=== PATIENT | female | born 1960 | race Caucasian/White ===

== ENCOUNTER → 2020-07-22 | Outpatient (CLI) | payer BC ==
[~2020-07-22] MED LIST: RT-ALBUTEROL SULF 2.5 MG/3 ML PRE-MIX VIAL INH ONE
== END ==
LOC: RAD 08:00
PROVIDERS: ATTEND Nurse Practitioner Family
DX: J44.9 Chronic obstructive pulmonary disease, unspecified (principal)
CPT/HCPCS: 94060; 94726; 94729

== ENCOUNTER 2022-03-30 00:54 | Emergency (ER) | payer BC, OTHER ==
[~2022-03-30] VITALS: Ht 157 cm; Wt 45.1 kg
[2022-03-30] MEDS ORDERED: IBUPROFEN 800 MG (MOTRIN) TAB PO STA (01:17)
[2022-03-30] MEDS ORDERED: ORPHENADRINE 60 MG/2 ML (NORFLEX) AMP (ED ONLY) IM STA (01:17)
[2022-03-30] MEDS ORDERED: morphine INJ 10 MG/ML 1ML (SYR OR VIAL) IM STA (01:17)
--- NOTE | 2022-03-30 01:24 | ED Upper Extremity ---
General Chief Complaint: Upper Extremity Stated Complaint: LEFT ARM PAIN Nursing Triage Note: Pt reports she woke up at 3am yesterday morning to left neck and shoulder pain. Denies injury or trauma, SOA, or CP. 2+ radial pulses bilateral. Source: patient Exam Limitations: other (pain) History of Present Illness Date Seen by Provider: Mar 30, 2022 Time Seen by Provider: 00:59 Initial Comments 62-year-old female presenting with complaints of left neck and shoulder pain since 3 AM yesterday morning. She denies any direct trauma or injury to her shoulder. She has no chest pain, shortness of breath, numbness, tingling. She states that she has had some similar pain in the past with herniated disc in her neck. She just finished a round of steroids for inflammation in her right hand. She is right-hand dominant. 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 She states that she had a head animal trainer look at her shoulder and they had iced it earlier today. She has an appointment on April 07 to see nurse practitioner Seth in the clinic. She states that she has too much pain to be able to lay back and go to sleep so she had a friend bring her to the emergency department. She wanted testing to see what was causing her severe shoulder pain. Patient seemed agitated and upset and voiced that she wanted to know what was causing her shoulder pain. Onset: yesterday Severity: severe Pain/Injury Location: left shoulder Method of Injury: unknown Modifying Factors: Improves With Cold Therapy (Icing during the day helped some), Improves With Immobilization (Holding it still helps some); Worse With Movement Allergies and Home Medications Allergies Coded Allergies: No Known Drug Allergies (Unverified , 07/22/20) Patient Home Medication List Home Medication List Reviewed: Yes Hydrocodone/Acetaminophen (Hydrocodone-Acetamin 5-325 mg) 5 Mg-325 Mg Tablet, 1 TAB PO Q6H PRN for PAIN-SEVERE (8-10) Prescribed by: JOSELUIS RAMOS on 03/30/22 013 Ibuprofen (Ibuprofen) 800 Mg Tablet, 800 MG PO Q8H PRN for PAIN Prescribed by: JOSELUIS RAMOS on 03/30/22 013 Methocarbamol (Methocarbamol) 750 Mg Tablet, 1,500 MG PO Q8H PRN for MUSCLE SPASMS Prescribed by: JOSELUIS RAMOS on 03/30/22 0133 Review of Systems Constitutional: No chills, No fever EENTM: no symptoms reported Respiratory: No short of breath Cardiovascular: No chest pain, No edema Gastrointestinal: No nausea, No vomiting Genitourinary: no symptoms reported Musculoskeletal: joint pain (Left shoulder pain), muscle pain (Left trapezius muscle pain from her neck to the shoulder) Skin: No change in color Psychiatric/Neurological: Anxiety; Denies Numbness, Denies Paresthesia Past Hfjkqfe-Cijlgp-Omovvm Hx Patient Social History Tobacco Use?: Yes Tobacco type used: Cigarettes Smoking Status: Current Someday Smoker Use of E-Cig and/or Vaping dev: No Substance use?: No Alcohol Use?: No Pt feels they are or have been: No Physical Exam Vital Signs Vital Signs - First Documented 03/30/22 01:00 Temp 36.3 Pulse 100 Resp 17 B/P (MAP) 158/101 (120) Pulse Ox 96 O2 Delivery Room Air Capillary Refill : Less Than 3 Seconds Height, Weight, BMI Height: '" Weight: lbs. oz. kg; 18.00 BMI Method: General Appearance: moderate distress (pt agitated and upset about the pain in her shoulder and neck), thin HEENT: PERRL/EOMI Neck: tender lateral (Left lateral paraspinal and trapezius muscle tenderness and muscle spasms); No tender midline Cardiovascular: normal peripheral pulses, regular rate, rhythm Respiratory: chest non-tender, lungs clear, normal breath sounds, no respiratory distress, no accessory muscle use Shoulder: no evidence of injury; No normal ROM (Decreased range of motion due to pain in the shoulder), No asymmetry; bone tenderness; No deformity, No ecchymosis; limited ROM (Limited range of motion due to pain in the left shoulder. Patient would not allow me to perform PROM of left shoulder due to pain. She grabbed at my hand and actively resisted any movement. ), pain, soft tissue tenderness (Muscle spasms and tightness with pain in the left trapezius muscle) Elbow/Forearm: normal inspection, non-tender, no evidence of injury, normal ROM Wrist: Yes normal inspection, Yes non-tender, Yes no evidence of injury, Yes normal ROM Hand: normal inspection, non-tender, no evidence of injury, normal ROM Neurologic/Tendon: normal sensation, normal motor functions Neurologic/Psychiatric: no motor/sensory deficits, alert, oriented x 3 Skin: normal color, warm/dry Progress/Results/Core Measures Results/Orders My Orders Orders - JOSELUIS RAMOS MD Ice: Apply To Affected Area (03/30/22 01:17) Ed Ortho/Other Supplies Order (03/30/22 01:17) Orthopedic Equiment (03/30/22 01:17) Ibuprofen Tablet (Motrin Tablet) (03/30/22 01:17) Orphenadrine Inj (Ed Only) (Norflex Inje (03/30/22 01:17) Morphine Injection (Morphine Injection (03/30/22 01:17) Vital Signs/I&O 03/30/22 01:00 Temp 36.3 Pulse 100 Resp 17 B/P (MAP) 158/101 (120) Pulse Ox 96 O2 Delivery Room Air Blood Pressure Mean: 120 Progress Progress Note : Progress Note Patient refused x-rays because she said that she had too much pain and did not feel that there was anything broken in her shoulder. She initially was refusing pain shot because she said that she was not just coming for pain control and wanted to know what was causing her pain. I advised her that she would need an MRI to likely look at the nerves and rotator cuff but the x-rays would look for arthritis and joint issues. She may have aggravated her left shoulder and trapezius muscle with overuse as she just recently was having hand and arm pain on the right side that required steroids. She may have been compensating using the left side more than she thought. She works very hard as a lead custodian and wo rks all the time according to the patient and her friend. She finally agreed to pain medicine and muscle relaxer as well as an ice pack and we will place her in a sling to try and rest and support her shoulder and arm. Stressed importance of getting in with the clinic and likely needing to see orthopedics and get an MRI. I offered to do a CT scan of her cervical spine but if there is a bulging disc or herniation an MRI looks at that better as well. She refused imaging and said she could not lay back to do CT or move shoulder for xrays. She wanted to be able to rest. Her friend talked her into getting the pain shot and muscle relaxer. she did not want 3 shots so she took ibuprofen for anti-inflammatory. She states she has an appointment on Apr 07 with Nurse Practitioner Seth. Will prescribe meds to help get her through until next . Departure Impression Primary Impression: Acute pain of left shoulder Additional Impressions: Strain of left trapezius muscle Qualified Codes: S46.812A - Strain of other muscles, fascia and tendons at shoulder and upper arm level, left arm, initial encounter Trapezius muscle spasm Overuse syndrome of shoulder Qualified Codes: S46.912A - Strain of unspecified muscle, fascia and tendon at shoulder and upper arm level, left arm, initial encounter; X50.3XXA - Overexertion from repetitive movements, initial encounter Disposition: HOME, SELF-CARE Condition: Stable Departure-Patient Inst. Decision time for Depature: :29 Referrals: DENNIS HIDALGO APRN (PCP/Family) Primary Care Physician Patient Instructions: Opioids for Short-Term Treatment of Pain ED, Shoulder Pain ED, Muscle Spasm ED, Muscle Strain ED, Using Cold for Pain Add. Discharge Instructions: Use the sling for the next 3 to 4 days to try and rest your shoulder and left arm. Use ice 20 to 30 minutes at least 3-4 times a day to try and help with the shoulder pain. Take the anti-inflammatories and muscle relaxer to help with inflammation and muscle spasms with tightness in your shoulder and neck. For severe pain take narcotic pain medicine. Check back with the clinic as you likely need an MRI to look at your neck and shoulder to check for pinched nerves and rotator cuff issues. All discharge instructions reviewed with patient and/or family. Voiced understanding. Scripts Hydrocodone/Acetaminophen (Hydrocodone-Acetamin 5-325 mg) 5 Mg-325 Mg Tablet 1 TAB PO Q6H PRN for PAIN-SEVERE (8-10) for 7 Days, #28 TAB 0 Refills Prov: JOSELUIS RAMOS MD 03/30/22 Methocarbamol (Methocarbamol) 750 Mg Tablet 1500 MG PO Q8H PRN for MUSCLE SPASMS for 10 Days, #60 TAB 0 Refills Prov: JOSELUIS RAMOS MD 03/30/22 Ibuprofen (Ibuprofen) 800 Mg Tablet 800 MG PO Q8H PRN for PAIN for 10 Days, #30 TAB 0 Refills Prov: JOSELUIS RAMOS MD 03/30/22 Work/School Note: Work Release Form Date Seen in the Emergency Department: Mar 30, 2022 Return to Work: Mar 30, 2022 Restrictions: Need Release from Doctor Other Restrictions Listed Below: Left arm sling for the next 4 days. Limit activity by shoulder pain JOSELUIS RAMOS MD Mar 30, 2022 01:24
[2022-03-30] MEDS ORDERED: IBUP-1780 PO (01:33)
[2022-03-30] MEDS ORDERED: METH-732 PO (01:33)
[2022-03-30] MEDS ORDERED: ACHD5005 PO (01:33)
[2022-03-30 01:43] VITALS: BP 158/101
== END 2022-03-30 01:43 | disposition home or self-care (01) ==
LOC: EDUNIT# 00:54 → ER FS 00:57
DX: S46.912A Strain of unspecified muscle, fascia and tendon at shoulder and upper arm level, left arm, initial encounter (principal); M62.838 Other muscle spasm; M70.812 Other soft tissue disorders related to use, overuse and pressure, left shoulder; F17.210 Nicotine dependence, cigarettes, uncomplicated; Z28.310 Unvaccinated for COVID-19; X58.XXXA Exposure to other specified factors, initial encounter
CPT/HCPCS: 96372; 99284

== ENCOUNTER 2022-07-11 08:24 | Emergency (ER) | payer BC ==
[~2022-07-11] VITALS: Ht 157.4 cm; Wt 43.8 kg
[~2022-07-11 08:24] MED LIST changes: +ACHD5005 PO; +IBUP-1780 PO; +METH-732 PO; -RT-ALBUTEROL SULF 2.5 MG/3 ML PRE-MIX VIAL INH ONE
--- NOTE | 2022-07-11 08:39 | ED GI ---
General Chief Complaint: Abdominal/GI Problems Stated Complaint: VOMITING History of Present Illness Date Seen by Provider: Jul 11, 2022 Time Seen by Provider: 08:35 Initial Comments 62-year-old female with PMH of COPD, is here with complaints of fever, cough, nausea, body aches headache, for the past 2 to 3 days. Pt was exposed to a family member who had Influenza B around thanksgiving time. Denies diarrhea, chest pain, palpitations, shortness of breath. Patient has not been able to eat or drink anything for the past couple of days due to nausea. Allergies and Home Medications Allergies Coded Allergies: No Known Drug Allergies (Unverified , 07/22/20) Patient Home Medication List Home Medication List Reviewed: Yes Hydrocodone/Acetaminophen (Hydrocodone-Acetamin 5-325 mg) 5 Mg-325 Mg Tablet, 1 TAB PO Q6H PRN for PAIN-SEVERE (8-10) Prescribed by: JOSELUIS RAMOS on 03/30/22 013 Ibuprofen (Ibuprofen) 800 Mg Tablet, 800 MG PO Q8H PRN for PAIN Prescribed by: JOSELUIS RAMOS on 03/30/22 013 Methocarbamol (Methocarbamol) 750 Mg Tablet, 1,500 MG PO Q8H PRN for MUSCLE SPASMS Prescribed by: JOSELUIS RAMOS on 03/30/22 013 Review of Systems Review of Systems Constitutional: fever EENTM: Nose Congestion Respiratory: Cough Cardiovascular: No Symptoms Reported Gastrointestinal: No Symptoms Reported Genitourinary: No Symptoms Reported Musculoskeletal: no symptoms reported Skin: no symptoms reported Psychiatric/Neurological: No Symptoms Reported Endocrine: No Symptoms Reported Hematologic/Lymphatic: No Symptoms Reported Physical Exam Vital Signs Capillary Refill : Height/Weight/BMI Height: '" Weight: lbs. oz. kg; 18.00 BMI Method: General Appearance: WD/WN, no apparent distress, thin, other (Appears lethargic and tired) HEENT: PERRL/EOMI, other (Runny nose) Neck: non-tender, full range of motion, supple, normal inspection Respiratory: chest non-tender, lungs clear, normal breath sounds, no respiratory distress, no accessory muscle use Cardiovascular: regular rate, rhythm Gastrointestinal: normal bowel sounds, non tender, soft, no organomegaly, no pulsatile mass Extremities: normal range of motion Back: normal inspection, no CVA tenderness Neurologic/Psychiatric: alert, normal mood/affect, oriented x 3 Skin: other (Tenting of skin and dry mucous membranes present) Progress/Results/Core Measures Results/Orders Lab Results Laboratory Tests Test 07/11/22 08:30 07/11/22 08:37 07/11/22 08:40 Range/Units Urine Color YELLOW Urine Clarity SLT CLOUDY Urine pH 5.5 5-9 Urine Specific [place] >=1.030 1.016-1.022 Urine Protein NEGATIVE NEGATIVE Urine Glucose (UA) NEGATIVE NEGATIVE Urine Ketones 1+ H NEGATIVE Urine Nitrite NEGATIVE NEGATIVE Urine Bilirubin NEGATIVE NEGATIVE Urine Urobilinogen 0.2 < = 1.0 MG/DL Urine Leukocyte Esterase NEGATIVE NEGATIVE Urine RBC (Auto) 1+ H NEGATIVE Urine RBC NONE /HPF Urine WBC 2-5 /HPF Urine Squamous Epithelial Cells 2-5 /HPF Urine Crystals NONE /LPF Urine Bacteria NEGATIVE /HPF Urine Casts NONE /LPF Urine Mucus SMALL H /LPF Urine Culture Indicated NO White Blood Count 6.0 4.3-11.0 10^3/uL Red Blood Count 4.97 3.80-5.11 10^6/uL Hemoglobin 15.5 11.5-16.0 g/dL Hematocrit 45 35-52 % Mean Corpuscular Volume 90 80-99 fL Mean Corpuscular Hemoglobin 31 25-34 pg Mean Corpuscular Hemoglobin Concent 35 32-36 g/dL Red Cell Distribution Width 12.3 10.0-14.5 % Platelet Count 217 130-400 10^3/uL Mean Platelet Volume 10.0 9.0-12.2 fL Immature Granulocyte % (Auto) 0 % Neutrophils (%) (Auto) 60 42-75 % Lymphocytes (%) (Auto) 25 12-44 % Monocytes (%) (Auto) 12 0-12 % Eosinophils (%) (Auto) 2 0-10 % Basophils (%) (Auto) 1 0-10 % Neutrophils # (Auto) 3.6 1.8-7.8 10^3/uL Lymphocytes # (Auto) 1.5 1.0-4.0 10^3/uL Monocytes # (Auto) 0.7 0.0-1.0 10^3/uL Eosinophils # (Auto) 0.1 0.0-0.3 10^3/uL Basophils # (Auto) 0.1 0.0-0.1 10^3/uL Immature Granulocyte # (Auto) 0.0 0.0-0.1 10^3/uL My Orders Orders - CHRISSY GALVAN MD Covid 19 Inhouse Test (07/11/22 08:39) Influenza A And B By Pcr (07/11/22 08:39) Cbc With Automated Diff (07/11/22 08:42) Comprehensive Metabolic Panel (07/11/22 08:42) Drug Screen Stat (Urine) (07/11/22 08:42) Magnesium (07/11/22 08:42) Procalcitonin (Pct) (07/11/22 08:42) Ua Culture If Indicated (07/11/22 08:42) Troponin I Fs (07/11/22 08:42) Chest 1 View Ap/Pa Only (07/11/22 08:43) Ondansetron Injection (Zofran Injectio (07/11/22 08:45) Ed Iv/Invasive Line Start (07/11/22 08:44) Ns Iv 1000 Ml (Sodium Chloride 0.9%) (07/11/22 08:45) Progress Progress Note : Progress Note 1. INFLUENZA A: - CXR: - COVID test/ Rapid strep test: negative - Rapid flu test: Positive - CBC normal white count - Out of window for Tamiflu - Zofran iv and NS IVF in ER - Advised adequate hydration, Tylenol or Ibuprofen prn fever or body aches - Zofran Prescription given - Follow up with PCP in 3 to 7 days 2. DEHYDRATION: -As per clinical exam and history of poor oral intake for the past couple of days. - ketones in urine - NS IVF bolus STAT Diagnostic Imaging Diagonstic Imaging: Xray Plain Films/CT/US/NM/MRI: chest Comments [facility]. [place], [place] NAME: WALDO [facility]ACOBSON [facility] REC#: [id number] PT STATUS: REG ER : 1960 PHYSICIAN: CHRISSY GALVAN MD ADMIT DATE: 07/11/22/ER FS Draft Date of Exam:07/11/22 CHEST 1 VIEW AP/PA ONLY INDICATION: cough. TECHNIQUE: Single view chest 9:05 AM. CORRELATION STUDY: None FINDINGS: The heart size, mediastinal configuration and pulmonary vascularity are within normal limits. The lungs are clear with no consolidating infiltrate. Calcified granuloma medial inferior left lung. There is no significant effusion or pneumothorax. IMPRESSION: 1. Negative appearing single view chest. Dictated on workstation # [id number] Dict: 07/11/22918 Trans: 07/11/22918 DO [id number] Interpreted by: KATI ROONEY DO Electronically signed by: Departure Impression Primary Impression: Influenza A Additional Impression: Dehydration Disposition: HOME, SELF-CARE Condition: Improved Departure-Patient Inst. Referrals: DENNIS HIDALGO APRN (PCP/Family) Primary Care Physician Patient Instructions: Flu, Adult (DC), Why Water Is Important to Health, Dehydration, Adult (DC) Add. Discharge Instructions: - Advised adequate hydration, Tylenol or Ibuprofen prn fever or body aches - Zofran Prescription given - Follow up with PCP in 3 to 7 days All discharge instructions reviewed with patient and/or family. Voiced understanding. Scripts Ondansetron (Ondansetron Odt) 4 Mg Tab.rapdis 4 MG SL Q4H PRN for NAUSEA/VOMITING for 3 Days, #18 TAB Prov: CHRISSY GALVAN MD 07/11/22 Work/School Note: Work Release Form Date Seen in the Emergency Department: Jul 11, 2022 Return to Work: Jul 15, 2022 Restrictions: Need Release from Doctor, Return-No Fever (24hrs) CHRISSY GALVAN MD Jul 11, 2022 08:39
[2022-07-11] MEDS ORDERED: ONDANSETRON 4 MG/2 ML (SDV) Z0FRAN IVP ONE (08:45)
[2022-07-11] MEDS ORDERED: NS IV 1000 ML 1,000 ML IV SCH (08:45)
[2022-07-11 08:49] LABS: BASOPHILS # (AUTO) 0.1 10^3/uL (0.0-0.1); BASOPHILS % (AUTO) 1 % (0-10); EOSINOPHILS # (AUTO) 0.1 10^3/uL (0.0-0.3); EOSINOPHILS % (AUTO) 2 % (0-10); HEMATOCRIT 45 % (35-52); HEMOGLOBIN 15.5 g/dL (11.5-16.0); LYMPHOCYTES # (AUTO) 1.5 10^3/uL (1.0-4.0); LYMPHOCYTES % (AUTO) 25 % (12-44); MEAN CORPUSCULAR HEMOGLOBIN 31 pg (25-34); MEAN CORPUSCULAR HGB CONC 35 g/dL (32-36); MEAN CORPUSCULAR VOLUME 90 fL (80-99); MONOCYTES # (AUTO) 0.7 10^3/uL (0.0-1.0); MONOCYTES % (AUTO) 12 % (0-12); NEUTROPHILS # (AUTO) 3.6 10^3/uL (1.8-7.8); NEUTROPHILS % (AUTO) 60 % (42-75); PLATELET COUNT 217 10^3/uL (130-400)
[2022-07-11 09:07] LABS: BILIRUBIN,URINE NEGATIVE (NEGATIVE); CLARITY,URINE SLT CLOUDY; COLOR,URINE YELLOW; GLUCOSE, URINE (UA) NEGATIVE (NEGATIVE); KETONES,URINE 1+ (NEGATIVE); LEUKOCYTE ESTERASE ,URINE NEGATIVE (NEGATIVE); NITRITE,URINE NEGATIVE (NEGATIVE); PH,URINE 5.5 (5-9); PROTEIN,URINE NEGATIVE (NEGATIVE)
[2022-07-11 09:08] LABS: BACTERIA,URINE NEGATIVE /HPF
[2022-07-11 09:15] LABS: AMPHETAMINE SCREEN, URINE NEGATIVE (NEGATIVE); BARBITURATE SCREEN URINE NEGATIVE (NEGATIVE); BENZODIAZEPINES SCREEN URINE NEGATIVE (NEGATIVE); CANNABINOID SCREEN, URINE NEGATIVE (NEGATIVE); COCAINE SCREEN URINE NEGATIVE (NEGATIVE); METHADONE STAT NEGATIVE (NEGATIVE); OPIATE SCREEN URINE NEGATIVE (NEGATIVE); OXYCODONE STAT NEGATIVE (NEGATIVE); PROPOXYPHENE STAT NEGATIVE (NEGATIVE); TRICYCLIC ANTIDEPRESSANTS SCRE NEGATIVE (NEGATIVE)
[2022-07-11 09:19] LABS: ALANINE AMINOTRANSFERASE 20 U/L (0-55); ALKALINE PHOSPHATASE 70 U/L (40-136); BILIRUBIN,TOTAL 0.2 MG/DL (0.1-1.0); BUN/CREATININE RATIO 14; CALCIUM 9.6 MG/DL (8.5-10.1); CARBON DIOXIDE 23 MMOL/L (21-32); CHLORIDE 98 MMOL/L (98-107); CREATININE SERUM 0.79 MG/DL (0.60-1.30); GFR ESTIMATED 85; GLUCOSE 97 MG/DL (70-105); MAGNESIUM 1.7 MG/DL (1.6-2.4); POTASSIUM 4.1 MMOL/L (3.6-5.0); SODIUM 132 MMOL/L (135-145)
[2022-07-11 09:20] LABS: ALBUMIN 4.6 GM/DL (3.2-4.5); TOTAL PROTEIN 7.4 GM/DL (6.4-8.2)
--- NOTE | 2022-07-11 09:20 | Diagnostic Imaging Report ---
INDICATION: cough. TECHNIQUE: Single view chest 9:05 AM. CORRELATION STUDY: None FINDINGS: The heart size, mediastinal configuration and pulmonary vascularity are within normal limits. The lungs are clear with no consolidating infiltrate. Calcified granuloma medial inferior left lung. There is no significant effusion or pneumothorax. IMPRESSION: 1. Negative appearing single view chest. Dictated by: Dictated on workstation # [id number]
[2022-07-11] MEDS ORDERED: ONDA4TAB11 SL (09:32)
[2022-07-11 09:54] VITALS: BP 114/75
== END 2022-07-11 09:54 | disposition home or self-care (01) ==
LOC: EDUNIT# 08:24 → ER FS 08:26
DX: J10.1 Influenza due to other identified influenza virus with other respiratory manifestations (principal); E86.0 Dehydration; Z20.822 Contact with and (suspected) exposure to COVID-19
CPT/HCPCS: 36415; 71045; 80053; 80306; 81000; 83735; 84145; 84484; 85025; 87636

== ENCOUNTER 2022-11-15 11:44 | Emergency (ER) | payer BC ==
[~2022-11-15] VITALS: Ht 157.5 cm; Wt 43.5 kg
[~2022-11-15 11:44] MED LIST changes: +ONDA4TAB11 SL
[2022-11-15 11:52] VITALS: BP 118/98
--- NOTE | 2022-11-15 11:55 | ED Headache ---
General Chief Complaint: Head/Cervical Problems Stated Complaint: VOMITING; SORENSON History of Present Illness Date Seen by Provider: Nov 15, 2022 Time Seen by Provider: 11:55 Initial Comments 62-year-old female with PMH of COPD, is here with complaints of generalized abdominal pain, nausea and vomiting, headache, loss of appetite since Monday afternoon (November 13), after Easter lunch of [employer]. No known sick contacts, and no other family members are known to have similar symptoms. Patient has not been able to keep any food or liquids down due to nausea and vomiting. Patient also has associated diarrhea. Denies fever and chills, chest pain, palpitations, dizziness, blurry vision, neck pain or neck stiffness, dysuria. Allergies and Home Medications Allergies Coded Allergies: No Known Drug Allergies (Unverified , 07/22/20) Patient Home Medication List Home Medication List Reviewed: Yes Hydrocodone/Acetaminophen (Hydrocodone-Acetamin 5-325 mg) 5 Mg-325 Mg Tablet, 1 TAB PO Q6H PRN for PAIN-SEVERE (8-10) Prescribed by: JOSELUIS RAMOS on 03/30/22 0134 Ibuprofen (Ibuprofen) 800 Mg Tablet, 800 MG PO Q8H PRN for PAIN Prescribed by: JOSELUIS RAMOS on 03/30/22 0133 Methocarbamol (Methocarbamol) 750 Mg Tablet, 1,500 MG PO Q8H PRN for MUSCLE SPASMS Prescribed by: JOSELUIS RAMOS on 03/30/22 0133 Ondansetron (Ondansetron Odt) 4 Mg Tab.rapdis, 4 MG SL Q4H PRN for NAUSEA/VOMITING Prescribed by: CHRISSY GALVAN MD on 07/11/22 0932 Review of Systems Review of Systems Constitutional: no symptoms reported Eyes: No Symptoms Reported Ears, Nose, Mouth, Throat: no symptoms reported Respiratory: no symptoms reported Cardiovascular: no symptoms reported Gastrointestinal: see HPI, abdominal pain, diarrhea, loss of appetite, nausea, vomiting Genitourinary: no symptoms reported Musculoskeletal: no symptoms reported Skin: no symptoms reported Psychiatric/Neurological: No Symptoms Reported Past Sbmudvd-Cxpvtp-Jkyphm Hx Patient Social History Tobacco Use?: No Substance use?: No Alcohol Use?: No Pt feels they are or have been: No Immunizations Up To Date First/Initial COVID19 Vaccinat: Yes Second COVID19 Vaccination Ernesto: Yes Third COVID19 Vaccination Date: Yes Past Medical History Surgery/Hospitalization HX: COPD; Tubal Ligation Physical Exam Vital Signs Vital Signs - First Documented 11/15/22 11:52 Temp 36.2 Pulse 94 Resp 18 B/P (MAP) 118/98 (105) Pulse Ox 98 O2 Delivery Room Air Capillary Refill : Height, Weight, BMI Height: '" Weight: lbs. oz. kg; 17.00 BMI Method: General Appearance: mild distress, thin HEENT: PERRL/EOMI Neck: non-tender, full range of motion, supple, normal inspection Cardiovascular: regular rate, rhythm, no edema Respiratory: lungs clear, normal breath sounds Gastrointestinal: normal bowel sounds, soft, no organomegaly, tenderness ( Generalized) Back: normal inspection, no CVA tenderness Extremities: normal range of motion Psychiatric: alert, oriented x 3 Crainal Nerves: normal hearing, normal speech, PERRL Coordination/Gait: normal gait Motor/Sensory: no motor deficit, no sensory deficit Skin: normal color Lymphatic: no adenopathy Progress/Results/Core Measures Results/Orders Lab Results Laboratory Tests Test 11/15/22 12:05 11/15/22 12:08 11/15/22 12:12 Range/Units Urine Color YELLOW Urine Clarity SL CLOUDY Urine pH 5.5 5-9 Urine Specific [place] >=1.030 1.016-1.022 Urine Protein NEGATIVE NEGATIVE Urine Glucose (UA) NEGATIVE NEGATIVE Urine Ketones NEGATIVE NEGATIVE Urine Nitrite NEGATIVE NEGATIVE Urine Bilirubin NEGATIVE NEGATIVE Urine Urobilinogen 0.2 < = 1.0 MG/DL Urine Leukocyte Esterase TRACE H NEGATIVE Urine RBC (Auto) TRACE-I H NEGATIVE Urine RBC 2-5 H /HPF Urine WBC 2-5 /HPF Urine Squamous Epithelial Cells 10-25 H /HPF Urine Crystals NONE /LPF Urine Bacteria TRACE /HPF Urine Casts NONE /LPF Urine Mucus SMALL H /LPF Urine Culture Indicated NO Urine Opiates Screen NEGATIVE NEGATIVE Urine Oxycodone Screen NEGATIVE NEGATIVE Urine Methadone Screen NEGATIVE NEGATIVE Urine Propoxyphene Screen NEGATIVE NEGATIVE Urine Barbiturates Screen NEGATIVE NEGATIVE Ur Tricyclic Antidepressants Screen NEGATIVE NEGATIVE Urine Phencyclidine Screen NEGATIVE NEGATIVE Urine Amphetamines Screen NEGATIVE NEGATIVE Urine Methamphetamines Screen NEGATIVE NEGATIVE Urine Benzodiazepines Screen NEGATIVE NEGATIVE Urine Cocaine Screen NEGATIVE NEGATIVE Urine Cannabinoids Screen NEGATIVE NEGATIVE White Blood Count 5.7 4.3-11.0 10^3/uL Red Blood Count 5.16 H 3.80-5.11 10^6/uL Hemoglobin 15.8 11.5-16.0 g/dL Hematocrit 47 35-52 % Mean Corpuscular Volume 91 80-99 fL Mean Corpuscular Hemoglobin 31 25-34 pg Mean Corpuscular Hemoglobin Concent 34 32-36 g/dL Red Cell Distribution Width 12.1 10.0-14.5 % Platelet Count 216 130-400 10^3/uL Mean Platelet Volume 10.2 9.0-12.2 fL Immature Granulocyte % (Auto) 0 % Neutrophils (%) (Auto) 75 42-75 % Lymphocytes (%) (Auto) 15 12-44 % Monocytes (%) (Auto) 6 0-12 % Eosinophils (%) (Auto) 3 0-10 % Basophils (%) (Auto) 1 0-10 % Neutrophils # (Auto) 4.3 1.8-7.8 10^3/uL Lymphocytes # (Auto) 0.8 L 1.0-4.0 10^3/uL Monocytes # (Auto) 0.4 0.0-1.0 10^3/uL Eosinophils # (Auto) 0.2 0.0-0.3 10^3/uL Basophils # (Auto) 0.0 0.0-0.1 10^3/uL Immature Granulocyte # (Auto) 0.0 0.0-0.1 10^3/uL Sodium Level 138 135-145 MMOL/L Potassium Level 4.5 3.6-5.0 MMOL/L Chloride Level 102 98-107 MMOL/L Carbon Dioxide Level 24 21-32 MMOL/L Anion Gap 12 5-14 MMOL/L Blood Urea Nitrogen 11 7-18 MG/DL Creatinine 0.69 0.60-1.30 MG/DL Estimat Glomerular Filtration Rate 98 BUN/Creatinine Ratio 16 Glucose Level 93 70-105 MG/DL Lactic Acid Level 0.75 0.50-2.00 MMOL/L Calcium Level 9.5 8.5-10.1 MG/DL Corrected Calcium 9.3 8.5-10.1 MG/DL Total Bilirubin 0.2 0.1-1.0 MG/DL Aspartate Amino Transf (AST/SGOT) 21 5-34 U/L Alanine Aminotransferase (ALT/SGPT) 11 0-55 U/L Alkaline Phosphatase 69 40-136 U/L Total Protein 6.9 6.4-8.2 GM/DL Albumin 4.3 3.2-4.5 GM/DL Lipase 19 8-78 U/L Serum Alcohol < 10 <10 MG/DL Influenza Type A (RT-PCR) Not Detected Not Detecte Influenza Type B (RT-PCR) Not Detected Not Detecte SARS-CoV-2 RNA (RT-PCR) Not Detected Not Detecte My Orders Orders - CHRISSY GALVAN MD Alcohol (11/15/22 12:01) Cbc With Automated Diff (11/15/22 12:01) Comprehensive Metabolic Panel (11/15/22 12:01) Drug Screen Stat (Urine) (11/15/22 12:01) Lactic Acid Analyzer (11/15/22 12:) Lipase (11/15/22 12:01) Ua Culture If Indicated (11/15/22 12:01) Ct Abdomen/Pelvis W (11/15/22 12:01) Ed Iv/Invasive Line Start (11/15/22 12:02) Ns Iv 1000 Ml (Sodium Chloride 0.9%) (11/15/22 12:15) Ed Iv/Invasive Line Start (11/15/22 12:02) Promethazine Injection (Phenergan Injec (11/15/22 12:02) Ondansetron Injection (Zofran Injectio (11/15/22 12:15) Ketorolac Injection (Toradol Injection) (11/15/22 12:15) Covid 19 Inhouse Test (11/15/22 12:03) Influenza A And B By Pcr (11/15/22 12:03) Iohexol Injection (Omnipaque 350 Mg/Ml 1 (11/15/22 13:00) Received Contrast (Hold Metformin- Contr (11/15/22 13:00) Ns (Ivpb) (Sodium Chloride 0.9% Ivpb Bag (11/15/22 13:00) Ceftriaxone 1 Gm Pre-Mix (Rocephin 1 Gm (11/15/22 13:11) Medications Given in ED Current Medications Medications Dose Ordered Sig/Yonny Route Start Time Stop Time Status Last Admin Dose Admin Iohexol 100 ml ONCE ONCE IV 11/15/22 13:00 11/15/22 13:01 DC 11/15/22 13:02 80 ML Ketorolac Tromethamine 15 mg ONCE ONCE IVP 11/15/22 12:15 11/15/22 12:16 DC 11/15/22 12:12 15 MG Ondansetron HCl 4 mg ONCE ONCE IVP 11/15/22 12:15 11/15/22 12:16 DC 11/15/22 12:12 4 MG Sodium Chloride 100 ml ONCE ONCE IV 11/15/22 13:00 11/15/22 13:01 DC 11/15/22 13:02 100 ML Vital Signs/I&O 11/15/22 11:52 Temp 36.2 Pulse 94 Resp 18 B/P (MAP) 118/98 (105) Pulse Ox 98 O2 Delivery Room Air Progress Progress Note : Progress Note 1. ACUTE CYSTITIS WITH HEMATURIA: - CT ABD : No acute findings - UA/ UDS: UA is positive for leukocyte esterase and RBCs. Drug screen is negative - CBC/ CMP: Unremarkable - Lipase: Normal - COVID/ Rapid Flu: Negative - Pepcid 20mg iv / Zofran 4mg iv STAT/ Toradol 15mg iv/ NS IVF bolus STAT -Patient felt a lot better after receiving medications and fluids - Ceftriaxone 1gm iv STAT in ER - Prescription given for Cefpodoxime 100mg Q12H for 7 days and Zofran ODT to shannen e as needed for nausea and vomiting -Adequate hydration advised, at least 8 glasses of water per day -Follow-up with PCP within the next 3 to 7 days -The patient was seen in the ED, and treated appropriately to presentation at a specific point in time. Patient is informed that there is a possibility that disease and illness can evolve and change in acuity rapidly or slowly after so hernandez is discharged from the ER. Precautionary advice given to the patient for immediate return to ER if symptoms worsen or do not resolve, and to seek emergency care sooner rather than later. Pt also advised on the importance of PCP follow up and compliance with management and follow up plan with PCP and/or specialist, as this is part of the management plan. Pt verbally expressed understanding. Diagnostic Imaging Diagonstic Imaging: CT Plain Films/CT/US/NM/MRI: abdomen Comments NAME: [facility] REC#: [id number] PT STATUS: REG ER : 1960 PHYSICIAN: CHRISSY GALVAN MD ADMIT DATE: 11/15/22/ER FS Draft Date of Exam:11/15/22 CT ABDOMEN/PELVIS W EXAMINATION: CT abdomen and pelvis with intravenous contrast. TECHNIQUE: Multiple contiguous axial images were obtained through the abdomen and pelvis after the uneventful administration of intravenous contrast. All CT scans use one or more of the following dose optimizing techniques: automated exposure control, MA and/or KvP adjustment based on patient size and exam type or iterative reconstruction. HISTORY: abdominal pain, diffuse COMPARISON: None available. FINDINGS: Lung bases: The lung bases are clear. Solid organs: The liver is normal without focal lesion. The gallbladder is normal. There is no biliary ductal dilation. Pancreas is normal. Spleen is normal. Adrenal glands are normal. The kidneys are normal without hydronephrosis. Bowel: The stomach and small bowel are normal without obstruction. The colon is normal. The appendix is normal. Peritoneum: There is no intraperitoneal free fluid or free air. No suspicious lymphadenopathy. Vasculature: Calcification of the aorta without aneurysm. Musculoskeletal: No suspicious osseous lesion or compression fracture. Pelvis: The uterus and adnexa are normal. The urinary bladder is normal. IMPRESSION: 1. No acute abnormality in the abdomen or pelvis. Dictated on workstation # [id number] Dict: 11/15/22 1318 Trans: 11/15/22 1323 [id number] Interpreted by: HALIE REYES DO Electronically signed by: Departure Impression Primary Impression: Acute cystitis with hematuria Disposition: HOME, SELF-CARE Condition: Improved Departure-Patient Inst. Referrals: DENNIS HIDALGO APRN (PCP) Primary Care Physician [facility] (Family) Primary Care Physician Patient Instructions: Acute Cystitis (DC), Urinary Tract Infection, Adult ED Add. Discharge Instructions: - Prescription given for Cefpodoxime 100mg Q12H for 7 days and Zofran ODT to take as needed for nausea and vomiting -Adequate hydration advised, at least 8 glasses of water per day -Follow-up with PCP within the next 3 to 7 days All discharge instructions reviewed with patient and/or family. Voiced understanding. Scripts Ondansetron (Ondansetron Odt) 4 Mg Tab.rapdis 4 MG SL Q6H PRN for NAUSEA/VOMITING for 4 Days, #16 TAB Prov: CHRISSY GALVAN MD 11/15/22 Cefpodoxime Proxetil (Cefpodoxime Proxetil) 100 Mg Tablet 100 MG PO Q12H for 7 Days, #14 TAB Prov: CHRISSY GALVAN MD 11/15/22 Work/School Note: Work Release Form Date Seen in the Emergency Department: Nov 15, 2022 Return to Work: Nov 18, 2022 Restrictions: No Restrictions, Need Release from Doctor, Return-No Fever (24hrs), Return-No Vomiting(24hrs) Other Restrictions Listed Below: Follow-up with PCP within the next 3 to 7 days CHRISSY GALVAN MD Nov 15, 2022 11:55
[2022-11-15] MEDS ORDERED: PROMETHAZINE INJ 25 MG/ML (PHENERGAN) AMP IVP STA (12:02)
[2022-11-15] MEDS ORDERED: NS IV 1000 ML 1,000 ML IV SCH (12:15)
[2022-11-15] MEDS ORDERED: KETOROLAC 15 MG/ML VIAL IVP ONE (12:15)
[2022-11-15] MEDS ORDERED: ONDANSETRON 4 MG/2 ML (SDV) Z0FRAN IVP ONE (12:15)
[2022-11-15 12:19] LABS: BILIRUBIN,URINE NEGATIVE (NEGATIVE); CLARITY,URINE SL CLOUDY; COLOR,URINE YELLOW; GLUCOSE, URINE (UA) NEGATIVE (NEGATIVE); KETONES,URINE NEGATIVE (NEGATIVE); LEUKOCYTE ESTERASE ,URINE TRACE (NEGATIVE); NITRITE,URINE NEGATIVE (NEGATIVE); PH,URINE 5.5 (5-9); PROTEIN,URINE NEGATIVE (NEGATIVE)
[2022-11-15 12:29] LABS: BASOPHILS % (AUTO) 1 % (0-10); EOSINOPHILS # (AUTO) 0.2 10^3/uL (0.0-0.3); EOSINOPHILS % (AUTO) 3 % (0-10); HEMATOCRIT 47 % (35-52); HEMOGLOBIN 15.8 g/dL (11.5-16.0); LYMPHOCYTES # (AUTO) 0.8 10^3/uL (1.0-4.0); LYMPHOCYTES % (AUTO) 15 % (12-44); MEAN CORPUSCULAR HEMOGLOBIN 31 pg (25-34); MEAN CORPUSCULAR HGB CONC 34 g/dL (32-36); MEAN CORPUSCULAR VOLUME 91 fL (80-99); MEAN PLATELET VOLUME 10.2 fL (9.0-12.2); MONOCYTES # (AUTO) 0.4 10^3/uL (0.0-1.0); MONOCYTES % (AUTO) 6 % (0-12); NEUTROPHILS # (AUTO) 4.3 10^3/uL (1.8-7.8); NEUTROPHILS % (AUTO) 75 % (42-75); PLATELET COUNT 216 10^3/uL (130-400); WHITE BLOOD COUNT 5.7 10^3/uL (4.3-11.0)
[2022-11-15 12:37] LABS: AMPHETAMINE SCREEN, URINE NEGATIVE (NEGATIVE); BARBITURATE SCREEN URINE NEGATIVE (NEGATIVE); BENZODIAZEPINES SCREEN URINE NEGATIVE (NEGATIVE); CANNABINOID SCREEN, URINE NEGATIVE (NEGATIVE); COCAINE SCREEN URINE NEGATIVE (NEGATIVE); METHADONE STAT NEGATIVE (NEGATIVE); OPIATE SCREEN URINE NEGATIVE (NEGATIVE); OXYCODONE STAT NEGATIVE (NEGATIVE); PROPOXYPHENE STAT NEGATIVE (NEGATIVE); TRICYCLIC ANTIDEPRESSANTS SCRE NEGATIVE (NEGATIVE)
[2022-11-15 12:45] LABS: BACTERIA,URINE TRACE /HPF
[2022-11-15 12:47] LABS: ALANINE AMINOTRANSFERASE 11 U/L (0-55); ALBUMIN 4.3 GM/DL (3.2-4.5); ALKALINE PHOSPHATASE 69 U/L (40-136); BILIRUBIN,TOTAL 0.2 MG/DL (0.1-1.0); BUN/CREATININE RATIO 16; CALCIUM 9.5 MG/DL (8.5-10.1); CARBON DIOXIDE 24 MMOL/L (21-32); CHLORIDE 102 MMOL/L (98-107); CREATININE SERUM 0.69 MG/DL (0.60-1.30); GFR ESTIMATED 98; GLUCOSE 93 MG/DL (70-105); LIPASE 19 U/L (8-78); POTASSIUM 4.5 MMOL/L (3.6-5.0); SODIUM 138 MMOL/L (135-145); TOTAL PROTEIN 6.9 GM/DL (6.4-8.2)
[2022-11-15] MEDS ORDERED: HOLD METFORMIN - RECEIVED CONTRAST 20 ML VIAL IV SCH (13:00)
[2022-11-15] MEDS ORDERED: IOHEXOL 350 MG/ML 100 ML (OMNIPAQUE 350) VIAL IV ONE (13:00)
[2022-11-15] MEDS ORDERED: NS 100 ML (IVPB) BAG IV ONE (13:00)
[2022-11-15] MEDS ORDERED: cefTRIAXone PRE-MIX 50 ML IV STA (13:11)
--- NOTE | 2022-11-15 13:23 | Diagnostic Imaging Report ---
EXAMINATION: CT abdomen and pelvis with intravenous contrast. TECHNIQUE: Multiple contiguous axial images were obtained through the abdomen and pelvis after the uneventful administration of intravenous contrast. All CT scans use one or more of the following dose optimizing techniques: automated exposure control, MA and/or KvP adjustment based on patient size and exam type or iterative reconstruction. HISTORY: abdominal pain, diffuse COMPARISON: None available. FINDINGS: Lung bases: The lung bases are clear. Solid organs: The liver is normal without focal lesion. The gallbladder is normal. There is no biliary ductal dilation. Pancreas is normal. Spleen is normal. Adrenal glands are normal. The kidneys are normal without hydronephrosis. Bowel: The stomach and small bowel are normal without obstruction. The colon is normal. The appendix is normal. Peritoneum: There is no intraperitoneal free fluid or free air. No suspicious lymphadenopathy. Vasculature: Calcification of the aorta without aneurysm. Musculoskeletal: No suspicious osseous lesion or compression fracture. Pelvis: The uterus and adnexa are normal. The urinary bladder is normal. IMPRESSION: 1. No acute abnormality in the abdomen or pelvis. Dictated by: Dictated on workstation # [id number]
[2022-11-15] MEDS ORDERED: CEFP100T2 PO (13:34)
[2022-11-15] MEDS ORDERED: ONDA4TAB11 SL (13:34)
== END 2022-11-15 13:37 | disposition home or self-care (01) ==
LOC: EDUNIT# 11:44 → ER FS 11:45
DX: N30.01 Acute cystitis with hematuria (principal); Z20.822 Contact with and (suspected) exposure to COVID-19
CPT/HCPCS: 36415; 74177; 80053; 80306; 81000; 83605; 83690; 85025; 87636; 99284; G0480; 80320; Q9967